=== PATIENT | male | born 1955 | race Caucasian/White ===

== ENCOUNTER → 2018-11-12 | Outpatient (CLI) | payer BC ==
--- NOTE | 2018-11-12 18:51 | PCVCIMAG ---
EXAM: BILATERAL SUPERFICIAL VENOUS DUPLEX INDICATION: Leg pain and swelling. FINDINGS: Right leg: No thrombus in the common femoral, main femoral, or popliteal veins. These veins are compressible. Right Great Saphenous Vein: At the saphenofemoral junction the diameter is 6.0 mm, in the mid thigh it is 6.0 mm, and in the calf it is 6.3 mm. There is significant venous insufficiency/reflux throughout. Venous insufficiency/reflux duration is 2.1 seconds. Right Small Saphenous Vein: At the saphenopopliteal junction the diameter is 4.1 mm, and in the calf it is 3.2 mm. There is not significant venous insufficiency/reflux throughout. Venous insufficiency/reflux duration is 02.9 seconds. There is a cranial extension present. Left leg: No thrombus in the common femoral, main femoral, or popliteal veins. These veins are compressible. Left Great Saphenous Vein: At the saphenofemoral junction the diameter is 6.2 mm, in the mid thigh it is 6.1 mm, and in the calf it is 6.4 mm. There is significant venous insufficiency/reflux throughout. Venous insufficiency/reflux duration is 3.3 seconds. Left Small Saphenous Vein: At the saphenopopliteal junction the diameter is 5.9 mm, and in the calf it is 5.7 mm. There is significant venous insufficiency/reflux throughout. Venous insufficiency/reflux duration is 0.8 seconds. There is not a cranial extension present. IMPRESSION: Right Great Saphenous Vein: Significant venous insufficiency/reflux is present as noted above. Right Small Saphenous Vein: No significant venous insufficiency/reflux is present as noted above. Left Great Saphenous Vein: Significant venous insufficiency/reflux is present as noted above. Left Small Saphenous Vein: Significant venous insufficiency/reflux is present as noted above. Incidental note is made of venous insufficiency/reflux in the left popliteal vein with duration of 1.9 seconds. LOC:OFFICE
== END | disposition home or self-care (01) ==
LOC: PCVCIMAG 13:12
PROVIDERS: ATTEND Podiatrist
DX: I83.813 Varicose veins of bilateral lower extremities with pain (principal)
CPT/HCPCS: 93970